=== PATIENT | female | born 1980 | race Caucasian/White ===

== ENCOUNTER 2020-09-10 11:57 | Emergency (ER) | payer OTHER, SELFPAY ==
[2020-09-10 12:02] VITALS: PULSE 115; RESP 18; O2SAT 99
--- NOTE | 2020-09-10 12:12 | ED_ITS ---
HPI - Wound/Laceration General: Chief Complaint: Wound/Laceration Stated Complaint: laceration to wrist Time Seen by Provider: 09/10/20 12:06 History of Present Illness: HPI narrative: Patient cut tip of left pinky finger in a door at a local restaurant a few minutes ago and avulsed the end of the finger on the plantar surface. Does have active bleeding. Is complain about pain. Denies any other injuries. Onset (ago): minute(s) Extremity Location: Left: hand Place: other (Local restaurant) Patient tetanus UTD: No Context: accidental Associated symptoms: Reports no associated symptoms; Denies chills or fever(s) Review of Systems Const: Denies: fever(s) or chills Musc: Reports: extremity pain (Pinky finger right hand tip) Psych: Reports: anxiety Physical Exam Const: COMMON NORMALS: no acute distress Extremity: RIGHT UPPER EXTREMITY: Yes hand & digits (Avulsed tip of pinky finger venous bleeding, left hand) Psych: COMMON NORMALS: mental status grossly normal (Is anxious related to injury) Course Vital Signs: Vital signs: Vital Signs Pulse Rate 115 H 09/10/20 12:02 Respiratory Rate 18 09/10/20 12:02 Pulse Oximetry 99 09/10/20 12:02 Coding Level of Care Code ED [employer] for Rashaun Fwd Exam Expanded Problem Focused
--- NOTE | 2020-09-10 12:21 | XR_ITS ---
WS: [id number] Left hand, 3 views, 09/10/2020 Clinical Data: injury Comparison: None. Findings: There has been soft tissue amputation and distal phalangeal partial amputation of the left fifth fing er. The ungual tuft is partially absent. The remainder of the left hand is normal. XR/XR hand LT min 3V* [id number] Impression: Soft tissue injury and partial avulsion of distal phalanx of left fifth finger.
[2020-09-10] MEDS: lidocaine 2% INJ 20 mL INJECTION (12:39)
[2020-09-10] MEDS: tetanus-dipt-pertussis 0.5 mL SDV IM (12:40)
[2020-09-10] MEDS: HYDROcodone-acetaminophen 5-325 mg Tablet 1 TAB PO (12:40)
--- NOTE | 2020-09-11 06:51 | W.ED.WOUNDLC ---
HPI - Wound/Laceration General: Chief Complaint: Wound/Laceration Stated Complaint: laceration to wrist Time Seen by Provider: 09/10/20 12:06 History of Present Illness: Place: other (Local restaurant) Course Vital Signs: Vital signs: Vital Signs Pulse Rate 115 H 09/10/20 12:02 Respiratory Rate 18 09/10/20 12:02 Pulse Oximetry 99 09/10/20 12:02 MDM - Wound/Laceration MDM Narrative: Medical decision making narrative: This is an addendum to the chart that I closed and signed prematurely. Saw the patient yesterday and got her left index finger caught in a door at a local restaurant and she had both the tip of the finger and the distal [place] also. The wound was irrigated and cleaned and closed loosely for sutures patient made aware of the open fracture patient was placed on antibiotics given pain medication and was advised to follow-up with orthopedic surgeon of her choice as soon as possible. Patient is on their way moving to [facility] and they were traveling to the area today. They do live in couple presently but am not aware of their current living situation. Strongly encouraged to follow-up with orthopedic doctor here in case management was notified for an appointment. But did encourage him to follow-up in [place] or [facility] if that is where they choose to move to the next few days. The wound itself was difficult to close due to the irregular avulsion of the area. It was sutured cosmetically as best as possible. Dressing was applied. Patient has full range of motion finger distal neurovascular intact nail is still fully intact follow-up as directed Discharge Plan Discharge Patient Disposition: Home Clinical Impression: Laceration Condition: Stable Prescriptions: New clindamycin HCl 300 mg capsule 300 mg PO Q8H 7 Days Qty: 21 RF: 0 hydrocodone-acetaminophen 5-325 mg tablet 1 tab PO TID PRN (Reason: pain) Qty: 14 RF: 0 Discharge Orders: Discharge ED (Routine); Ordered 09/10/20 Ordered By: Josesito Parker Discharge Diet: Usual diet Discharge Activity: Increase activity as tolerated Patient Instructions: Suture Care (ED), Laceration (ED), Skin Avulsion (ED), Opioid Safety Activity Restrictions/Additional Instructions: Follow-up with medical provider as directed. Take medications as prescribed. Return to the ER or your medical provider if condition worsens. Please read and understand discharge instructions. If any questions ask please. Keep appointment with orthopedics as scheduled by the hospital. Sutures out in 7 days. Change dressing daily. Coding Level of Care Code ED Health Care / Medical Job Titles for Rashaun Aguayo
--- NOTE | 2020-09-11 09:25 | DCPLANNER ---
manager forms had message to schedule a follow up appointment for patient with ortho for an open fracture of pinky. manager forms called the ortho clinic, spoke with Dianne, gave clinic patients information. manager forms was told that patients information would be printed and reviewed. Clinic will call patient with appointment information.
--- NOTE | 2020-09-16 15:16 | DCPLANNER ---
warehouse operations manager called the ortho clinic, spoke with Aviva to confirm that a follow up appointment had been scheduled for patient. warehouse operations manager was told that clinic has tried to reach patient, and has not been able to reach patient to schedule a follow up appointment. warehouse operations manager called phone number [phone], unable to reach patient at this time.
== END 2020-09-10 13:04 | disposition home or self-care (01) ==
PROVIDERS: Emergency Provider Nurse Practitioner Family
DX: S68.127A Partial traumatic metacarpophalangeal amputation of left little finger, initial encounter (principal); W23.0XXA Caught, crushed, jammed, or pinched between moving objects, initial encounter; Y92.511 Restaurant or cafe as the place of occurrence of the external cause; Z23 Encounter for immunization
CPT/HCPCS: 12001; 73130; 90471; 90715; 99283; 99291; A6446